=== PATIENT | male | born 1980 | race Caucasian/White ===

== ENCOUNTER 2019-10-19 06:21 | Observation (INO) | payer OTHER ==
[2019-10-19] MEDS: SODIUM CHLORIDE 0.9% 500 ML 500 ML IV SCH ×2 (07:05→09:13)
[2019-10-19 07:14] LABS: Basophils % (Auto) 0.9 % (0.0-1.8); Eosinophils # (Auto) 0.1 K/mm3 (0.0-0.4); Eosinophils % (Auto) 1.5 % (0.0-4.3); Hematocrit 41.7 % (35.5-45.6); Hemoglobin 14.4 gm/dl (11.8-15.2); Lymphocytes # (Auto) 1.4 K/mm3 (1.2-5.4); Lymphocytes % (Auto) 28.9 % (13.4-35.0); Mean Corpuscular HGB Conc 35 % (32-34); Mean Corpuscular Volume 87 fl (84-94); Monocytes # (Auto) 0.3 K/mm3 (0.0-0.8); Monocytes % (Auto) 6.1 % (0.0-7.3); Platelet Count 278 K/mm3 (140-440); Red Blood Count 4.78 M/mm3 (3.65-5.03); Red Cell Distribution Width 13.4 % (13.2-15.2)
[2019-10-19 07:27] LABS: BUN/Creatinine Ratio 16; Blood Urea Nitrogen 14 mg/dL (9-20); Calcium 9.4 mg/dL (8.4-10.2); Hemolysis Index 9
[2019-10-19 07:44] LABS: INR 1.01 (0.87-1.13)
[2019-10-19] MEDS ORDERED: HEPARIN/NS 5000 UNIT/500ML 1,000 ML IR ONE (08:12)
[2019-10-19] MEDS ORDERED: MIDAZOLAM 2 MG/2 ML INJ ONE (08:12)
[2019-10-19] MEDS ORDERED: LIDOCAINE (2%) 20 MG/1 ML VIAL 20 ML MDV INFILTRATI ONE (08:13)
[2019-10-19] MEDS ORDERED: fentaNYL 100 MCG/2 ML INJ ONE (08:13)
[2019-10-19] MEDS ORDERED: VERAPAMIL 5 MG/2 ML INJ ONE (08:13)
[2019-10-19] MEDS: NITROGLYCERIN SYRINGE 3 ML ONE ×2 (09:14→09:17)
[2019-10-19] MEDS: HEPARIN 10,000 UNITS/10 ML VIAL ONE ×3 (09:16→09:19)
[2019-10-19] MEDS ORDERED: SODIUM CHLORIDE 0.9% 500 ML 500 ML ONE (09:30)
--- NOTE | 2019-10-19 10:48 | Cardiac Catherization Report ---
CARDIAC CATHETERIZATION INDICATION FOR PROCEDURE: The patient is a pleasant 39-year-old gentleman who presented last week with non-ST elevation myocardial infarction, found to have occlusion of his right coronary, underwent primary PCI drug-eluting stent. Also found to have 90% high mid LAD stenosis; however, was discharged, had recurrent chest pain despite optimal medical therapy, referred for left heart catheterization and PCI of LAD. Risks, benefits, alternatives discussed at length prior to obtaining informed consent. PROCEDURE IN DETAIL: The patient was brought to the catheterization lab in a postabsorptive state, prepped and draped in sterile fashion. Aldair's test in right hand was normal. A 2 mL of 2% lidocaine used to anesthetize the right wrist. A standard 6-Peruvian hydrophilic sheath used to cannulate the right radial via modified Seldinger technique. All exchanges performed to exchange a J-tip guidewire. JL3.5 catheter was used to engage the left main. No dampening or ventricularization. Cineangiography performed in all projections. JR4 catheter was used to cross the aortic valve under fluoroscopic guidance. Left ventriculography performed in 30 DEVRIES and 30 SLOVENIAN projections via hand injections, catheter flushed. Manual pullback performed with continuous pressure monitoring. Catheter used to engage the right coronary. No dampening or ventricularization. Cineangiography performed in all projections. Next, an EBU 3.5 guide used to engage left main without difficulty. Heparin given. Abnormal ACT is confirmed. DATA: Aortic pressure is 110/60, LV pressure is 110, LVEDP of 12 mmHg. Left ventriculography revealed normal systolic performance with estimated ejection fraction of 55-60%. The patient remained in sinus rhythm and sinus bradycardia throughout the procedure. No AV block, no dysrhythmias. Normal left ventricular systolic performance, estimated ejection fraction of 55-60%. No evidence of aortic stenosis. CORONARY ANATOMY: Right dominant system. Right coronary is a moderate sized vessel, courses AV groove, distally bifurcates in posterior descending and posterolateral branches. A stent in the distal right coronary is widely patent. Widely patent, posterior descending artery. LAD is a moderate sized vessel, courses anterior intergroove, wraps around the apex. There is a 90% eccentric hazy high mid LAD stenosis, this is the culprit lesion. There is a 40-50% mid left circumflex stenosis, which is smooth. Medical management of this, we decided to proceed with PCI. Abnormal ACT confirmed. The lesion was wired with a [place] wire. We direct stented with an Ajit 3.0 x 18 drug-eluting stent. Excellent angiographic result. There is a jailed second diagonal, which is very small. FADI 3 flow. Medical management. Intravascular ultrasound was performed, which reveals a well-opposed, well-expanded stent, no dissection proximally or distally, a good result. No complications are noted. I directly supervised the administration of moderate sedation from 9:10 a.m. to 9:45 a.m. with fentanyl and Versed. CONCLUSIONS: 1. Severe coronary artery disease. A successful PCI of culprit 90% hazy high mid LAD stenosis with placement of drug-eluting stent (Leon 3.0 x 18) with excellent final angiographic and ultrasonographic results. 2. A 40-50% mid left circumflex, medical management. 3. Patent distal right coronary stent. 4. Preserved left ventricular systolic performance, estimated ejection fraction of 55-60%. 5. No evidence of aortic stenosis. The patient is clinically stable. Chest pain free. Standard radial care. Aspirin, statin and Plavix therapy. Blood pressure has been on the lower side, but he is not able to tolerate beta sharon or LESA inhibitor. Anticipate discharge in a.m. Results of procedure explained to the patient and family. All questions and concerns were addressed. JOB# [id number] CHERIE/ELENI
[2019-10-19] MEDS ORDERED: NON-FORMULARY EACH (Simvastatin [Simvastatin] 40 MG) PO SCH (22:00)
[2019-10-19] MEDS ORDERED: PRAVASTATIN 80 MG TAB PO SCH (22:00)
[2019-10-20 05:38] LABS: Basophils % (Auto) 0.7 % (0.0-1.8); Eosinophils # (Auto) 0.1 K/mm3 (0.0-0.4); Eosinophils % (Auto) 1.6 % (0.0-4.3); Hematocrit 40.5 % (35.5-45.6); Hemoglobin 13.6 gm/dl (11.8-15.2); Lymphocytes # (Auto) 1.9 K/mm3 (1.2-5.4); Lymphocytes % (Auto) 27.7 % (13.4-35.0); Mean Corpuscular HGB Conc 34 % (32-34); Mean Corpuscular Volume 89 fl (84-94); Monocytes # (Auto) 0.5 K/mm3 (0.0-0.8); Monocytes % (Auto) 7.8 % (0.0-7.3); Platelet Count 270 K/mm3 (140-440); Red Blood Count 4.56 M/mm3 (3.65-5.03); Red Cell Distribution Width 13.2 % (13.2-15.2)
[2019-10-20 05:50] LABS: Creatine Kinase MB 1.7 ng/mL (0.0-4.0)
[2019-10-20 05:53] LABS: BUN/Creatinine Ratio 13; Blood Urea Nitrogen 12 mg/dL (9-20); Hemolysis Index 8
--- NOTE | 2019-10-20 09:20 | XRay Report ---
CHEST 1 VIEW INDICATION: post pci. COMPARISON: 10/07/2019 FINDINGS: Support devices: None. Heart: Within normal limits. Lungs/Pleura: No acute air space or interstitial disease. No pneumothorax. Additional findings: None. IMPRESSION: No acute findings. Signer Name: Manuelito Irwin Jr, MD Signed: 10/20/2019 9:16 AM Workstation Name: [id number]
[2019-10-20] MEDS ORDERED: LISINOPRIL 5 MG TAB PO SCH (10:00)
[2019-10-20] MEDS ORDERED: ASPIRIN 81 MG TAB CHEW PO SCH (10:00)
[2019-10-20] MEDS ORDERED: CLOPIDOGREL 75 MG TAB PO SCH (10:00)
--- NOTE | 2019-10-20 10:34 | Short Stay Summary ---
Short Stay Documentation Date of service: 10/20/19 - History H&P: obtained from office - Allergies and Medications Current Medications: Allergies No Known Allergies Allergy (Verified 09/25/14 23:14) Home Medications Medication Instructions Recorded Confirmed Last Taken Type Aspirin [Aspirin BABY CHEW TAB] 81 mg PO QDAY #30 tab.chew 10/10/19 10/19/19 10/19/19 05:30 Rx Clopidogrel [Plavix] 75 mg PO QDAY #30 tablet 10/10/19 10/19/19 10/19/19 Rx 0705 lisinopriL [Zestril TAB] 5 mg PO QDAY #30 tablet 10/10/19 10/19/19 10/18/19 Rx Simvastatin 40 mg PO QHS 10/19/19 10/19/19 10/18/19 History Active Medications Aspirin (Baby Aspirin) 81 mg PO QDAY [facility] Last Admin: 10/20/19 09:25 Dose: Not Given Documented by: Clopidogrel Bisulfate (Plavix) 75 mg PO QDAY [facility] Last Admin: 10/20/19 09:25 Dose: Not Given Documented by: Lisinopril (Zestril) 5 mg PO QDAY [facility] Last Admin: 10/20/19 09:26 Dose: Not Given Documented by: Pravastatin Sodium (Pravachol) 80 mg PO QHS [facility] Last Admin: 10/19/19 21:01 Dose: 80 mg Documented by: - Physical exam General appearance: no acute distress Integumentary: no rash, no growths, no abnormal pigmentation, other (right radial [facility] site c/d/i, no bleeding or hematoma) HEENT: Atraumatic, PERRLA, EOMI Lungs: Clear to auscultation Heart: Regular rate, Normal S1, Normal S2 Gastrointestinal: normal, normoactive bowel sounds Extremities: no ischemia, pulses intact, pulses symmetrical Neurological: Normal gait, Normal speech, Strength at 5/5 X4 ext - Brief post op/procedure progress note Date of procedure: 10/19/19 Pre-op diagnosis: CAD Post-op diagnosis: same Procedure: LHC with PCI - see dictated cath report Anesthesia: local Estimated blood loss: none Condition: stable - Disposition Condition at discharge: Good Disposition: [id number] TO HOME OR SELFCARE - Discharge Diagnoses (1) CAD (coronary artery disease) Status: Chronic (2) Stented coronary artery Status: Chronic (3) Sinus bradycardia Status: Chronic Short Stay Discharge Plan Activity: advance as tolerated Diet: low fat, low cholesterol, low salt Wound: open to air, keep clean and dry, per your surgeon's advice Follow up with: NATACHA SALAMANCA MD [Primary Care Provider] - 7 Days MARILEE VIRK MD [Staff Physician] - 7 Days ([place] office, 11/07/2019 @ 3:00PM)
[2019-10-20 13:11] VITALS: BP 113/65
== END 2019-10-20 15:20 | disposition home or self-care (01) ==
LOC: CATHLABREC 06:21 → 4A 10:36
PROVIDERS: ADMIT Internal Medicine; ATTEND Internal Medicine
DX: I25.10 Atherosclerotic heart disease of native coronary artery without angina pectoris (principal); R00.1 Bradycardia, unspecified; Z95.5 Presence of coronary angioplasty implant and graft; Z79.82 Long term (current) use of aspirin; Z79.02 Long term (current) use of antithrombotics/antiplatelets; Z79.899 Other long term (current) drug therapy
CPT/HCPCS: 36415; 71045; 80048; 82550; 82553; 84484; 85025; 85347; 85610; 85730; 92978; 93005; 93010; 93458; A9270; C1753; C1769; C1874; C1887; C1894; C9600; G0378; J1644; J2250; J3010; J7040; 92928; Q9967

== ENCOUNTER 2019-10-22 17:45 | Emergency (ER) | payer OTHER ==
--- NOTE | 2019-10-22 20:54 | Emergency Department Report ---
Chief Complaint: Pain General Stated Complaint: BRUISES ON L SIDE - HPI History of Present Illness: 39 y/o M p/w a cc of SOB and anxiety. The pt states he had a cardiac stent placed 10/19/[address] Diaz. The pt states yd he developed SOB and anxiety. Pt denies CP. Pt states he's noticed bruising to his left chest and LUE. Pt is on plavix and asa - Exam Vital Signs: Vital Signs 10/22/19 20:48 Temperature 98.2 F Pulse Rate 60 Respiratory 18 Rate Blood Pressure 120/63 O2 Sat by Pulse 99 Oximetry MSE screening note: Focused history and physical exam performed. Due to findings the following was ordered: cbc, bmp, ck/ckmb, tro, pt/ptt/inr cxr, EKG ED Disposition for MSE Condition: Stable
[2019-10-22 21:07] LABS: Basophils # (Auto) 0.1 K/mm3 (0.0-0.1); Eosinophils # (Auto) 0.1 K/mm3 (0.0-0.4); Hematocrit 40.7 % (35.5-45.6); Hemoglobin 14.1 gm/dl (11.8-15.2); Lymphocytes # (Auto) 2.4 K/mm3 (1.2-5.4); Lymphocytes % (Auto) 35.8 % (13.4-35.0); Mean Corpuscular HGB Conc 35 % (32-34); Mean Corpuscular Volume 88 fl (84-94); Monocytes # (Auto) 0.6 K/mm3 (0.0-0.8); Monocytes % (Auto) 8.2 % (0.0-7.3); Platelet Count 291 K/mm3 (140-440); Red Blood Count 4.61 M/mm3 (3.65-5.03); Red Cell Distribution Width 13.3 % (13.2-15.2)
--- NOTE | 2019-10-22 21:20 | XRay Report ---
CHEST 2 VIEWS INDICATION: sob. COMPARISON: 10/20/2019 FINDINGS: Support devices: None. Heart: Within normal limits. Lungs/Pleura: No acute air space or interstitial disease. No significant pleural effusion. IMPRESSION: No acute findings. Signer Name: Marlon Beckwith MD Signed: 10/22/2019 9:15 PM Workstation Name: [id number]
[2019-10-22 21:21] LABS: Creatine Kinase MB 1.6 ng/mL (0.0-4.0)
[2019-10-22 21:22] LABS: INR 1.06 (0.87-1.13)
[2019-10-22 21:23] LABS: BUN/Creatinine Ratio 12; Blood Urea Nitrogen 12 mg/dL (9-20); Calcium 9.3 mg/dL (8.4-10.2); Hemolysis Index 24
[2019-10-22 21:27] LABS: Partial Thromboplastin Time 34.3 Sec. (24.2-36.6)
[2019-10-22] MEDS ORDERED: LORazepam 1 MG TAB PO ONE (22:27)
--- NOTE | 2019-10-22 22:44 | Emergency Department Report ---
ED Chest Pain HPI - General Chief Complaint: Pain General Stated Complaint: BRUISES ON L SIDE Time Seen by Provider: 10/22/19 22:13 Source: patient Mode of arrival: Ambulatory Limitations: No Limitations - History of Present Illness Initial Comments: Patient is a 39-year-old male with past medical history of coronary artery disease and hypertension who had 2 stents placed in the RCA on 10/08/2019 and a LAD stent placed on 10/19/2019. Patient states he left the hospital feeling fine. Patient states that yesterday he began having some palpitations and a panicky feeling. States is some associated shortness of breath. Patient's had these continued symptoms throughout the day. Patient denies nausea vomiting fevers chills cough cold or congestion. Patient states the symptoms are not exertional. Of note patient also noticed a small bruise on his left axilla and left posterior forearm. Patient does not remember any trauma. Patient is newly on Plavix Severity scale (0 -10): 0 - Related Data Home Medications Medication Instructions Recorded Confirmed Last Taken Simvastatin 40 mg PO QHS 10/19/19 10/19/19 10/18/19 Previous Rx's Medication Instructions Recorded Last Taken Type Aspirin [Aspirin BABY CHEW TAB] 81 mg PO QDAY #30 tab.chew 10/10/19 10/19/19 05:30 Rx Clopidogrel [Plavix] 75 mg PO QDAY #30 tablet 10/10/19 10/19/19 Rx 0705 lisinopriL [Zestril TAB] 5 mg PO QDAY #30 tablet 10/10/19 10/18/19 Rx ALPRAZolam [Xanax TAB] 0.25 mg PO BID PRN #6 tab 10/22/19 Unknown Rx Allergies Allergy/AdvReac Type Severity Reaction Status Date / Time No Known Allergies Allergy Verified 09/25/14 23:14 Heart Score - HEART Score History: Slightly suspicious EKG: Normal Age: < 45 Risk factors: > 3 risk factors or hx of atherosclerotic disease Troponin: < normal limit HEART Score: 2 ED Review of Systems ROS: Stated complaint: BRUISES ON L SIDE Other details as noted in HPI Comment: All other systems reviewed and negative ED Past Medical Hx - Past Medical History Previous Medical History?: Yes Hx Hypertension: Yes Hx Heart Attack/AMI: Yes Hx Headaches / Migraines: Yes Hx Asthma: Yes Hx HIV: No Additional medical history: HYPERLIPIDEMIA - Surgical History Past Surgical History?: Yes Hx Coronary Stent: Yes (2 stents: 10/08/19 (RCA) and 10/19/19 (LAD)) Additional Surgical History: HERNIA SX A CHILD - Social History Smoking Status: Never Smoker Substance Use Type: None - Medications Home Medications: Home Medications Medication Instructions Recorded Confirmed Last Taken Type Aspirin [Aspirin BABY CHEW TAB] 81 mg PO QDAY #30 tab.chew 10/10/19 10/19/19 10/19/19 05:30 Rx Clopidogrel [Plavix] 75 mg PO QDAY #30 tablet 10/10/19 10/19/19 10/19/19 Rx 0705 lisinopriL [Zestril TAB] 5 mg PO QDAY #30 tablet 10/10/19 10/19/19 10/18/19 Rx Simvastatin 40 mg PO QHS 10/19/19 10/19/19 10/18/19 History ALPRAZolam [Xanax TAB] 0.25 mg PO BID PRN #6 tab 10/22/19 Unknown Rx ED Physical Exam - General Limitations: No Limitations General appearance: alert, in no apparent distress - Head Head exam: Present: atraumatic, normocephalic - Eye Eye exam: Present: normal appearance, PERRL, EOMI - ENT ENT exam: Present: mucous membranes moist - Neck Neck exam: Present: normal inspection - Respiratory Respiratory exam: Present: normal lung sounds bilaterally. Absent: respiratory distress, wheezes, rales, rhonchi - Cardiovascular Cardiovascular Exam: Present: regular rate, normal rhythm, normal heart sounds. Absent: systolic murmur, diastolic murmur, rubs, gallop - GI/Abdominal GI/Abdominal exam: Present: soft, normal bowel sounds. Absent: distended, tenderness, guarding, rebound - Rectal Rectal exam: Present: deferred - Extremities Exam Extremities exam: Present: normal inspection - Back Exam Back exam: Present: normal inspection - Neurological Exam Neurological exam: Present: alert, oriented X3 - Psychiatric Psychiatric exam: Present: normal affect, normal mood - Skin Skin exam: Present: warm, dry, intact, normal color. Absent: rash ED Course Vital Signs 10/22/19 10/22/19 10/22/19 20:48 21:58 22:00 Temperature 98.2 F 97.8 F Pulse Rate 60 55 L 56 L Respiratory 18 21 14 Rate Blood Pressure 120/63 Blood Pressure 128/71 [Left] O2 Sat by Pulse 99 99 Oximetry 10/22/19 10/22/19 10/22/19 22:01 22:15 22:31 Temperature Pulse Rate 52 L 58 L 66 Respiratory 12 13 17 Rate Blood Pressure 128/71 128/71 127/74 Blood Pressure [Left] O2 Sat by Pulse 99 99 99 Oximetry 10/22/19 10/22/19 10/22/19 22:45 23:01 23:15 Temperature Pulse Rate 53 L 52 L 56 L Respiratory 17 13 17 Rate Blood Pressure 127/74 120/66 127/74 Blood Pressure [Left] O2 Sat by Pulse 98 98 98 Oximetry FADI score - Fadi Score Age > 65: (0) No Aspirin use within the Past 7 Days: (0) No 3 or more CAD Risk Factors: (0) No 2 or more Angina events in past 24 hrs: (1) Yes Known CAD with more than 50% Stenosis: (0) No Elevated Cardiac Markers: (1) Yes ST Deviation Greater than 0.5mm: (0) No FADI Score: 2 ED Medical Decision Making - Lab Data Result diagrams: 10/22/19 20:56 10/22/19 20:56 Lab Results 10/22/19 10/22/19 10/22/19 Range/Units 20:56 20:56 20:56 WBC 6.7 (4.5-11.0) K/mm3 RBC 4.61 (3.65-5.03) M/mm3 Hgb 14.1 (11.8-15.2) gm/dl Hct 40.7 (35.5-45.6) % MCV 88 (84-94) fl MCH 31 (28-32) pg MCHC 35 H (32-34) % RDW 13.3 (13.2-15.2) % Plt Count 291 (140-440) K/mm3 Lymph % (Auto) 35.8 H (13.4-35.0) % [place] % (Auto) 8.2 H (0.0-7.3) % Eos % (Auto) 2.0 (0.0-4.3) % Baso % (Auto) 1.0 (0.0-1.8) % Lymph # 2.4 (1.2-5.4) K/mm3 [place] # 0.6 (0.0-0.8) K/mm3 Eos # 0.1 (0.0-0.4) K/mm3 Baso # 0.1 (0.0-0.1) K/mm3 Seg Neutrophils % 53.0 (40.0-70.0) % Seg Neutrophils # 3.6 (1.8-7.7) K/mm3 PT 13.9 (12.2-14.9) Sec. INR 1.06 (0.87-1.13) APTT 34.3 (24.2-36.6) Sec. Sodium 137 (137-145) mmol/L Potassium 3.9 (3.6-5.0) mmol/L Chloride 98.7 (98-107) mmol/L Carbon Dioxide 26 (22-30) mmol/L Anion Gap 16 mmol/L BUN 12 (9-20) mg/dL Creatinine 1.0 (0.8-1.5) mg/dL Estimated GFR > 60 ml/min BUN/Creatinine Ratio 12 % Glucose 91 (75-100) mg/dL Calcium 9.3 (8.4-10.2) mg/dL Total Creatine Kinase 91 (55-170) units/L CK-MB (CK-2) 1.6 (0.0-4.0) ng/mL CK-MB (CK-2) Rel Index 1.7 (0-4) Troponin T (0.00-0.029) ng/mL 10/22/19 Range/Units 20:56 WBC (4.5-11.0) K/mm3 RBC (3.65-5.03) M/mm3 Hgb (11.8-15.2) gm/dl Hct (35.5-45.6) % MCV (84-94) fl MCH (28-32) pg MCHC (32-34) % RDW (13.2-15.2) % Plt Count (140-440) K/mm3 Lymph % (Auto) (13.4-35.0) % [place] % (Auto) (0.0-7.3) % Eos % (Auto) (0.0-4.3) % Baso % (Auto) (0.0-1.8) % Lymph # (1.2-5.4) K/mm3 [place] # (0.0-0.8) K/mm3 Eos # (0.0-0.4) K/mm3 Baso # (0.0-0.1) K/mm3 Seg Neutrophils % (40.0-70.0) % Seg Neutrophils # (1.8-7.7) K/mm3 PT (12.2-14.9) Sec. INR (0.87-1.13) APTT (24.2-36.6) Sec. Sodium (137-145) mmol/L Potassium (3.6-5.0) mmol/L Chloride (98-107) mmol/L Carbon Dioxide (22-30) mmol/L Anion Gap mmol/L BUN (9-20) mg/dL Creatinine (0.8-1.5) mg/dL Estimated GFR ml/min BUN/Creatinine Ratio % Glucose (75-100) mg/dL Calcium (8.4-10.2) mg/dL Total Creatine Kinase (55-170) units/L CK-MB (CK-2) (0.0-4.0) ng/mL CK-MB (CK-2) Rel Index (0-4) Troponin T < 0.010 (0.00-0.029) ng/mL second troponin unchanged - EKG Data -: EKG Interpreted by Ri EKG shows normal: sinus rhythm, axis, intervals, QRS complexes, ST-T waves Rate: normal - EKG Data 10/22/19 22:44 occasional PVC, otherwise no acute process - Radiology Data CHEST 2 VIEWS INDICATION: sob. COMPARISON: 10/20/2019 FINDINGS: Support devices: None. Heart: Within normal limits. Lungs/Pleura: No acute air space or interstitial disease. No significant pleural effusion. IMPRESSION: No acute findings. Signer Name: Marlon Beckwith MD Signed: 10/22/2019 9:15 PM Workstation Name: [id number] - Medical Decision Making Patient is a 39-year-old male who has undergone 3 stent placements over the last month. Complaining of some mild shortness of breath and anxious feeling with palpitations. Patient has 2 negative troponins and no changes on EKG. Patient's heart scores 2. Patient is safe for discharge and ruled out for acute coronary syndrome. Patient and nurse to follow with his civil rights attorney. Critical care attestation.: If time is entered above; I have spent that time in minutes in the direct care of this critically ill patient, excluding procedure time. ED Disposition Clinical Impression: Atypical chest pain, Palpitation, Anxiousness, SOB (shortness of breath) Disposition: - TO HOME OR SELFCARE Is pt being admited?: No Does the pt Need Aspirin: No Condition: Stable Instructions: Chest Pain (ED) Prescriptions: ALPRAZolam [Xanax TAB] 0.25 mg PO BID PRN #6 tab PRN Reason: Anxiety Referrals: SALLIE BURTON MD [Staff Physician] - 3-5 Days Time of Disposition: 23:30
[2019-10-22 23:25] VITALS: BP 127/74
== END 2019-10-22 23:56 | disposition home or self-care (01) ==
LOC: ED 17:45
DX: S40.022A Contusion of left upper arm, initial encounter (principal); S50.12XA Contusion of left forearm, initial encounter; R07.89 Other chest pain; R00.2 Palpitations; R06.02 Shortness of breath; F41.9 Anxiety disorder, unspecified; I10 Essential (primary) hypertension; I25.10 Atherosclerotic heart disease of native coronary artery without angina pectoris; J45.909 Unspecified asthma, uncomplicated; E78.5 Hyperlipidemia, unspecified; Z98.890 Other specified postprocedural states; Z79.899 Other long term (current) drug therapy; Z95.5 Presence of coronary angioplasty implant and graft; X58.XXXA Exposure to other specified factors, initial encounter; Y93.89 Activity, other specified; Y92.89 Other specified places as the place of occurrence of the external cause; Y99.8 Other external cause status
CPT/HCPCS: 36415; 71046; 80048; 82550; 82553; 84484; 85025; 85610; 85730; 93005; 93010

== ENCOUNTER 2020-12-22 16:07 | Observation (INO) | payer OTHER ==
[2020-12-22] MEDS ORDERED: ASPIRIN 325 MG TAB PO ONE ×3 (16:19→20:21)
--- NOTE | 2020-12-22 16:20 | Event Note ---
ED Screening Note Date of service: 12/22/20 Time: 16:20 ED Screening Note: Pleasant 40-year-old male with a past medical history of coronary artery disease status post stenting x2 presents to the ER with chief complaint of left-sided chest pain without radiation over the past 2 days. He denies any shortness of breath or exertional symptoms. Denies any other associated symptoms such as fever, chills, night sweats, headache, dizziness, blurry vision, nausea, vomit, diarrhea, shortness of breath, weakness or any other associated symptoms. This initial assessment/diagnostic orders/clinical plan/treatment(s) is/are subject to change based on patients health status, clinical progression and re- assessment by fellow clinical providers in the ED. Further treatment and workup at subsequent clinical providers discretion. Patient/guardian urged not to elope from the ED as their condition may be serious if not clinically assessed and managed. Initial orders include: Chest pain protocol, stat EKG, troponins
--- NOTE | 2020-12-22 16:54 | XRay Report ---
CHEST 2 VIEWS 1642 INDICATION / CLINICAL INFORMATION: Chest Pain COMPARISON: 10/22/2019 FINDINGS: SUPPORT DEVICES: None. HEART / MEDIASTINUM: No significant abnormality. LUNGS / PLEURA: No significant pulmonary or pleural abnormality. No pneumothorax. ADDITIONAL FINDINGS: No significant additional findings. IMPRESSION: No significant acute abnormality Signer Name: Miguel Hunt MD Signed: 12/22/2020 4:50 PM Workstation Name: [id number]
[2020-12-22 17:11] LABS: Basophils % (Auto) 0.5 % (0.0-1.8); Eosinophils % (Auto) 0.5 % (0.0-4.3); Hematocrit 42.6 % (35.5-45.6); Hemoglobin 14.4 gm/dl (11.8-15.2); Lymphocytes % (Auto) 14.7 % (13.4-35.0); Mean Corpuscular HGB Conc 34 % (32-34); Mean Corpuscular Volume 92 fl (84-94); Monocytes # (Auto) 0.4 K/mm3 (0.0-0.8); Monocytes % (Auto) 5.8 % (0.0-7.3); Platelet Count 334 K/mm3 (140-440); Red Blood Count 4.64 M/mm3 (3.65-5.03); Red Cell Distribution Width 14.6 % (13.2-15.2)
[2020-12-22 17:25] LABS: Alanine Aminotransferase 14 units/L (7-56); Albumin 4.3 g/dL (3.9-5); BUN/Creatinine Ratio 11; Blood Urea Nitrogen 10 mg/dL (9-20); Calcium 9.3 mg/dL (8.4-10.2); Hemolysis Index 10
[2020-12-22 17:32] LABS: INR 1.06 (0.87-1.13)
--- NOTE | 2020-12-22 20:01 | Emergency Department Report ---
ED Chest Pain HPI - General Chief Complaint: Chest Pain Stated Complaint: CP Time Seen by Provider: 12/22/20 19:36 Source: patient Mode of arrival: Ambulatory Limitations: No Limitations - History of Present Illness Initial Comments: Patient is 40 years old male with history of coronary artery disease status post stent last year by Dr. Husain. Patient presented to the ER complaining of left sided chest pain that started this morning while he was working. Patient describes his chest pain as similar to what he had last time when he had his VT. Patient denied any shortness of breath, fever or cough. Patient stated that he is compliant with his medication. MD Complaint: chest pain -: This morning Onset: during rest Pain Location: left chest Pain Radiation: none Severity: moderate Severity scale (0 -10): 6 Quality: tightness - Related Data Home Medications Medication Instructions Recorded Confirmed Last Taken Simvastatin 40 mg PO QHS 10/19/19 12/23/20 10/18/19 Losartan [Cozaar] 25 mg PO QDAY 12/23/20 12/23/20 12/22/20 Previous Rx's Medication Instructions Recorded Last Taken Type Aspirin [Aspirin BABY CHEW TAB] 81 mg PO QDAY #30 tab.chew 10/10/19 12/22/20 Rx Clopidogrel [Plavix] 75 mg PO QDAY #30 tablet 10/10/19 12/22/20 Rx ALPRAZolam [Xanax TAB] 0.25 mg PO BID PRN #6 tab 10/22/19 Unknown Rx ISOSORBIDE MONOnitrate [Imdur ER] 30 mg PO DAILY #30 tab.er.24h 12/24/20 Unknown Rx Allergies Allergy/AdvReac Type Severity Reaction Status Date / Time No Known Allergies Allergy Verified 09/25/14 23:14 Heart Score - HEART Score History: Moderately suspicious EKG: Non-specific Age: < 45 Risk factors: > 3 risk factors or hx of atherosclerotic disease Troponin: < normal limit HEART Score: 4 ED Review of Systems ROS: Stated complaint: CP Other details as noted in HPI Comment: All other systems reviewed and negative Constitutional: denies: chills, fever Respiratory: denies: cough, orthopnea, shortness of breath, SOB with exertion, SOB at rest, wheezing Cardiovascular: chest pain. denies: palpitations, dyspnea on exertion Gastrointestinal: denies: abdominal pain, nausea, vomiting Musculoskeletal: denies: back pain Neurological: denies: headache, weakness ED Past Medical Hx - Past Medical History Previous Medical History?: Yes Hx Hypertension: Yes Hx Heart Attack/AMI: Yes Hx Headaches / Migraines: Yes Hx Asthma: Yes Hx HIV: No Additional medical history: HYPERLIPIDEMIA - Surgical History Past Surgical History?: Yes Hx Coronary Stent: Yes (2 stents: 10/08/19 (RCA) and 10/19/19 (LAD)) Additional Surgical History: HERNIA SX A CHILD - Social History Smoking Status: Never Smoker Substance Use Type: Alcohol - Medications Home Medications: Home Medications Medication Instructions Recorded Confirmed Last Taken Type Aspirin [Aspirin BABY CHEW TAB] 81 mg PO QDAY #30 tab.chew 10/10/19 12/23/20 12/22/20 Rx Clopidogrel [Plavix] 75 mg PO QDAY #30 tablet 10/10/19 12/23/20 12/22/20 Rx Simvastatin 40 mg PO QHS 10/19/19 12/23/20 10/18/19 History ALPRAZolam [Xanax TAB] 0.25 mg PO BID PRN #6 tab 10/22/19 12/23/20 Unknown Rx Losartan [Cozaar] 25 mg PO QDAY 12/23/20 12/23/20 12/22/20 History ISOSORBIDE MONOnitrate [Imdur ER] 30 mg PO DAILY #30 tab.er.24h 12/24/20 Unknown Rx ED Physical Exam - General Limitations: No Limitations General appearance: alert, in no apparent distress - Head Head exam: Present: atraumatic, normocephalic, normal inspection - Eye Eye exam: Present: normal appearance, PERRL - ENT ENT exam: Present: normal exam, normal orophraynx, mucous membranes moist - Neck Neck exam: Present: normal inspection, full ROM. Absent: tenderness, meningismus - Respiratory Respiratory exam: Present: normal lung sounds bilaterally - Cardiovascular Cardiovascular Exam: Present: regular rate, normal rhythm, normal heart sounds - GI/Abdominal GI/Abdominal exam: Present: soft, normal bowel sounds. Absent: distended, tenderness, guarding, rebound, rigid, organomegaly, mass, bruit, pulsatile mass, hernia - Extremities Exam Extremities exam: Present: normal inspection, full ROM, normal capillary refill. Absent: tenderness - Back Exam Back exam: Present: normal inspection, full ROM. Absent: CVA tenderness (R), CVA tenderness (L) - Neurological Exam Neurological exam: Present: alert, oriented X3, CN II-XII intact - Psychiatric Psychiatric exam: Present: normal mood - Skin Skin exam: Present: warm, dry, intact, normal color ED Course Vital Signs 12/22/20 12/22/20 12/22/20 16:26 20:00 20:16 Temperature 99 F 97.6 F Pulse Rate 65 61 58 L Respiratory 20 14 16 Rate Blood Pressure 113/83 123/72 125/81 Blood Pressure 123/72 [Left] O2 Sat by Pulse 98 99 98 Oximetry 12/22/20 12/22/20 12/22/20 20:30 20:46 21:00 Temperature Pulse Rate 62 67 60 Respiratory 16 10 L 16 Rate Blood Pressure 125/81 131/80 131/80 Blood Pressure [Left] O2 Sat by Pulse 100 99 99 Oximetry 12/22/20 12/22/20 12/22/20 21:16 21:30 21:46 Temperature Pulse Rate 70 62 58 L Respiratory 20 19 15 Rate Blood Pressure 112/66 108/70 110/54 Blood Pressure [Left] O2 Sat by Pulse 96 99 98 Oximetry 12/22/20 12/22/20 12/22/20 22:00 22:16 22:30 Temperature Pulse Rate 65 58 L 56 L Respiratory 19 18 15 Rate Blood Pressure 110/54 119/74 114/46 Blood Pressure [Left] O2 Sat by Pulse 99 100 100 Oximetry 12/22/20 12/22/20 12/22/20 22:46 23:00 23:24 Temperature Pulse Rate 56 L 72 Respiratory 18 19 17 Rate Blood Pressure 121/78 119/74 119/74 Blood Pressure [Left] O2 Sat by Pulse 99 99 100 Oximetry 12/22/20 12/22/20 12/22/20 23:26 23:30 23:40 Temperature Pulse Rate 67 62 Respiratory 18 15 17 Rate Blood Pressure 137/75 137/75 Blood Pressure [Left] O2 Sat by Pulse 99 99 Oximetry 12/22/20 23:46 Temperature Pulse Rate 63 Respiratory 13 Rate Blood Pressure 137/75 Blood Pressure [Left] O2 Sat by Pulse 98 Oximetry FADI score - Fadi Score Age > 65: (0) No Aspirin use within the Past 7 Days: (0) No 3 or more CAD Risk Factors: (0) No 2 or more Angina events in past 24 hrs: (1) Yes Known CAD with more than 50% Stenosis: (0) No Elevated Cardiac Markers: (1) Yes ST Deviation Greater than 0.5mm: (0) No FADI Score: 2 ED Medical Decision Making - Lab Data Result diagrams: 12/23/20 05:39 12/23/20 05:39 - EKG Data -: EKG Interpreted by Me EKG shows normal: sinus rhythm Rate: normal - EKG Data Interpretation: no acute changes - Radiology Data Radiology results: report reviewed - Medical Decision Making Patient is 40 years old male with history of coronary artery disease status post stent last year by Dr. Husain. Patient presented to the ER complaining of left sided chest pain that started this morning while he was working. Patient describes his chest pain as similar to what he had last time when he had his VT. Patient denied any shortness of breath, fever or cough. Patient stated that he is compliant with his medication. EKG showed no ST elevation however there is hyperacute T waves. Chest x-ray is unremarkable. Troponin is negative x2. I discussed the patient with Dr. 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 I discussed the patient with Dr. Guillermo, he agreed to admit the patient to medical service for further management. Critical care attestation.: If time is entered above; I have spent that time in minutes in the direct care of this critically ill patient, excluding procedure time. ED Disposition Clinical Impression: Chest pain, History of non-ST elevation myocardial infarction (NSTEMI) Disposition: OP ADMIT IP TO THIS HOSP Is pt being admited?: Yes Condition: Stable
[2020-12-22] MEDS ORDERED: ASPIRIN 81 MG TAB CHEW PO ONE (20:13)
[2020-12-22] MEDS ORDERED: ACETAMINOPHEN 325 MG TAB PO PRN (22:09)
[2020-12-22] MEDS ORDERED: NITROGLYCERIN 0.4 MG TAB SUBL SL PRN (22:09)
[2020-12-22] MEDS ORDERED: MORPHINE 4 MG/1 ML INJ IV PRN (22:09)
[2020-12-22] MEDS ORDERED: ALPRAZolam 0.25 MG TAB PO PRN (22:14)
--- NOTE | 2020-12-22 23:20 | History and Physical Report ---
History of Present Illness Date of examination: 12/22/20 Date of admission: 12/22/20 22:30 Chief complaint: chest pain History of present illness: 40-year-old male with history of CAD, HTN, NSTEMI, and HLD who presents [facility] ED with complaints of chest pain x2 days. Patient states she has been experiencing non-radiating 5/10 left sided chest pain which started approximately 2 days ago while on a job site. 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 He states that his chest p ain is similar to the pain he experienced when he had a NM a few years ago. Admits to be compliant with meds. Denies fever, headache, shortness of breath, cough, hemoptysis, palpitations, abdominal pain, hematuria, alterations in gait, diplopia, or recent sick contacts Past History Past Medical History: acute NM (NSTEMI), CAD, hypertension, hyperlipidemia, other (asthma, MATIAS) Past Surgical History: Other (stent x2 ( RCA 10/08/18, LAD 10/19/19)) Social history: , lives with family, full code. denies: smoking, alcohol abuse, IV drug use Family history: no significant family history Medications and Allergies Allergies Allergy/AdvReac Type Severity Reaction Status Date / Time No Known Allergies Allergy Verified 09/25/14 23:14 Home Medications Medication Instructions Recorded Confirmed Last Taken Type Aspirin [Aspirin BABY CHEW TAB] 81 mg PO QDAY #30 tab.chew 10/10/19 10/19/1901/31 05:30 Rx Clopidogrel [Plavix] 75 mg PO QDAY #30 tablet 10/10/19 10/19/19 10/19/19 Rx 0705 lisinopriL [Zestril TAB] 5 mg PO QDAY #30 tablet 10/10/19 10/19/19 10/18/19 Rx Simvastatin 40 mg PO QHS 10/19/19 10/19/19 10/18/19 History ALPRAZolam [Xanax TAB] 0.25 mg PO BID PRN #6 tab 10/22/19 Unknown Rx Active Meds: Active Medications Acetaminophen (Acetaminophen 325 Mg Tab) 650 mg PO Q6H PRN PRN Reason: Pain, Mild (1-3) Alprazolam (Alprazolam 0.25 Mg Tab) 0.25 mg PO BID PRN PRN Reason: Anxiety Aspirin (Aspirin 81 Mg Tab Chew) 81 mg PO QDAY HELEN Clopidogrel Bisulfate (Clopidogrel 75 Mg Tab) 75 mg PO QDAY HELEN Heparin Sodium (Porcine) (Heparin 5,000 Unit/1 Ml Vial) 5,000 unit SUB-Q Q12HR HELEN Lisinopril (Lisinopril 5 Mg Tab) 5 mg PO QDAY HELEN Morphine Sulfate (Morphine 4 Mg/1 Ml Inj) 2 mg IV Q5MIN PRN PRN Reason: Chest Pain Nitroglycerin (Nitroglycerin 0.4 Mg Tab Subl) 0.4 mg SL Q5M PRN PRN Reason: Chest Pain Pravastatin Sodium (Pravastatin 80 Mg Tab) 80 mg PO QHS HELEN Sodium Chloride (Sodium Chloride 0.9% 10 Ml Flush Syringe) 10 ml IV PRN PRN PRN Reason: LINE FLUSH Tramadol HCl (Tramadol 50 Mg Tab) 50 mg PO Q6H PRN PRN Reason: Pain, Moderate (4-6) Review of Systems All systems: negative (As noted in HPI) Exam - Physical Exam Narrative exam: Physical exam General appearance: Present: No acute distress, alert and oriented 3, adult male - EENT Eyes: Present: PERRL, EOM intact ENT: hearing intact, normal dentition - Neck Neck: Present: supple, normal ROM - Respiratory Respiratory effort: Non-labored Respiratory: Clear throughout - Cardiovascular Heart rate: 56 (bpm) Rhythm: Sinus bradycardia, with hyperacute T wave abnormality Heart Sounds: Present: S1 & S2. Absent: rub, click - Extremities Extremities: no ischemia, pulses intact, excoriation to right lower extremity - Peripheral Assessment Peripheral Pulses: within normal limits - Abdominal General gastrointestinal: soft, non-tender, normal bowel sounds - Integumentary Integumentary: Present: warm, dry - Musculoskeletal Musculoskeletal: Able to move all extremities -Neurological Neurological: CN II-XII intact - Psychiatric Psychiatric: Appropriate for situation ,cooperative - Constitutional Vitals: Temp Pulse Resp BP Pulse Ox 97.6 F 56 L 18 121/78 99 12/22/20 20:00 12/22/20 22:46 12/22/20 22:46 12/22/20 22:46 12/22/20 22:46 HEART Score - HEART Score EKG: Non-specific Age: < 45 Risk factors: > 3 risk factors or hx of atherosclerotic disease Troponin: Troponin T < 0.010 ng/mL (0.00-0.029) 12/22/20 18:54 Troponin: < normal limit Results - Labs CBC & Chem 7: 12/22/20 16:29 12/22/20 16: Labs: Laboratory Last Values WBC 7.1 K/mm3 (4.5-11.0) 12/22/20 16: RBC 4.64 M/mm3 (3.65-5.03) 12/22/20 16: Hgb 14.4 gm/dl (11.8-15.2) 12/22/20 16: Hct 42.6 % (35.5-45.6) 12/22/20 16: MCV 92 fl (84-94) 12/22/20 16: MCH 31 pg (28-32) 12/22/20 16: MCHC 34 % (32-34) 12/22/20 16: RDW 14.6 % (13.2-15.2) 12/22/20 16: Plt Count 334 K/mm3 (140-440) 12/22/20 16: Lymph % (Auto) 14.7 % (13.4-35.0) 12/22/20 16: [place] % (Auto) 5.8 % (0.0-7.3) 12/22/20 16: Eos % (Auto) 0.5 % (0.0-4.3) 12/22/20 16: Baso % (Auto) 0.5 % (0.0-1.8) 12/22/20 16: Lymph # (Auto) 1.0 K/mm3 (1.2-5.4) L 12/22/20 16: [place] # (Auto) 0.4 K/mm3 (0.0-0.8) 12/22/20 16: Eos # (Auto) 0.0 K/mm3 (0.0-0.4) 12/22/20 16: Baso # (Auto) 0.0 K/mm3 (0.0-0.1) 12/22/20 16: Seg Neutrophils % 78.5 % (40.0-70.0) H 12/22/20 16: Seg Neutrophils # 5.5 K/mm3 (1.8-7.7) 12/22/20 16:29 PT 13.7 Sec. (12.2-14.9) 12/22/20 16:29 INR 1.06 (0.87-1.13) 12/22/20 16:29 APTT 31.0 Sec. (24.2-36.6) 12/22/20 16:29 Sodium 139 mmol/L (137-145) 12/22/20 16:29 Potassium 3.9 mmol/L (3.6-5.0) 12/22/20 16:29 Chloride 102.0 mmol/L (98-107) 12/22/20 16:29 Carbon Dioxide 25 mmol/L (22-30) 12/22/20 16:29 Anion Gap 16 mmol/L 12/22/20 16:29 BUN 10 mg/dL (9-20) 12/22/20 16:29 Creatinine 0.9 mg/dL (0.8-1.3) 12/22/20 16:29 Estimated GFR > 60 ml/min 12/22/20 16:29 BUN/Creatinine Ratio 11 % 12/22/20 16:29 Glucose 95 mg/dL (75-100) 12/22/20 16:29 Calcium 9.3 mg/dL (8.4-10.2) 12/22/20 16:29 Total Bilirubin 0.40 mg/dL (0.1-1.2) 12/22/20 16:29 AST 22 units/L (5-40) 12/22/20 16:29 ALT 14 units/L (7-56) 12/22/20 16:29 Alkaline Phosphatase 78 units/L (35-129) 12/22/20 16:29 Troponin T < 0.010 ng/mL (0.00-0.029) 12/22/20 18:54 Total Protein 7.2 g/dL (6.3-8.2) 12/22/20 16:29 Albumin 4.3 g/dL (3.9-5) 12/22/20 16:29 Albumin/Globulin Ratio 1.5 % 12/22/20 16:29 - Imaging and Cardiology Chest x-ray: report reviewed (Impression: No significant acute abnormality), image reviewed Assessment and Plan Assessment and plan: Atypical acute Chest Pain -C/o left-sided nonradiating chest pain -Initiate chest pain protocol -Continuous telemetry monitoring -Continue supportive care -History of NSTEMI -Pain mgmt -Currently on ASA, Plavix, statin -Troponin negative x 2 , will continue to trend -EKG unrevealing for acute ischemic abnormalities -Cardiology consulted with plans to see patient in a.m. 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
[2020-12-23 06:14] LABS: Basophils % (Auto) 0.7 % (0.0-1.8); Eosinophils # (Auto) 0.1 K/mm3 (0.0-0.4); Eosinophils % (Auto) 2.4 % (0.0-4.3); Hematocrit 41.1 % (35.5-45.6); Hemoglobin 14.1 gm/dl (11.8-15.2); Lymphocytes # (Auto) 1.9 K/mm3 (1.2-5.4); Lymphocytes % (Auto) 32.4 % (13.4-35.0); Mean Corpuscular HGB Conc 34 % (32-34); Mean Corpuscular Volume 92 fl (84-94); Monocytes # (Auto) 0.5 K/mm3 (0.0-0.8); Monocytes % (Auto) 8.6 % (0.0-7.3); Platelet Count 296 K/mm3 (140-440); Red Blood Count 4.47 M/mm3 (3.65-5.03); Red Cell Distribution Width 14.5 % (13.2-15.2)
[2020-12-23 06:30] LABS: BUN/Creatinine Ratio 11; Blood Urea Nitrogen 10 mg/dL (9-20); Calcium 8.9 mg/dL (8.4-10.2); Hemolysis Index 4
[2020-12-23] MEDS: LOSARTAN 25 MG TAB PO SCH (09:20)
[2020-12-23] MEDS: CLOPIDOGREL 75 MG TAB PO SCH (09:20)
[2020-12-23] MEDS: traMADol 50 MG TAB PO PRN ×2 (09:20→15:29)
[2020-12-23] MEDS: ASPIRIN 81 MG TAB CHEW PO SCH (09:20)
[2020-12-23] MEDS ORDERED: LISINOPRIL 5 MG TAB PO SCH (10:00)
[2020-12-23] MEDS ORDERED: HEPARIN 5,000 UNIT/1 ML VIAL SUB-Q SCH (10:00)
--- NOTE | 2020-12-23 10:17 | Consultation ---
History of Present Illness Consult date: 12/23/20 Requesting physician: BEVERLY LYNNE Consult reason: chest pain History of present illness: 40-year-old male with history of CAD/PCI/RCA/LAD, NSTEMI, hypertension, and hyperlipidema who presents [facility] ED with complaints of chest pain x2 days. Patient states she has been experiencing non-radiating 5/10 left sided chest pain which started approximately 2 days ago while on a job site. 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 He states that his chest pain is similar to the pain he experienced when he had a MT a few years ago. Admits to be compliant with meds. 12 lead EKG no acute changes, troponins negative x 4. Denies fever, headache, shortness of breath, cough, hemoptysis, palpitations, abdominal pain, hematuria, alterations in gait, diplopia, or recent sick contacts Past History Past Medical History: acute MT (NSTEMI), CAD, hypertension, hyperlipidemia, other (asthma, MATIAS) Past Surgical History: Other (stent x2 ( RCA 10/08/18, LAD 10/19/19)) Social history: , lives with family, full code. denies: smoking, alcohol abuse, IV drug use Family history: no significant family history Medications and Allergies Allergies Allergy/AdvReac Type Severity Reaction Status Date / Time No Known Allergies Allergy Verified 09/25/14 23:14 Home Medications Medication Instructions Recorded Confirmed Last Taken Type Aspirin [Aspirin BABY CHEW TAB] 81 mg PO QDAY #30 tab.chew 10/10/19 12/23/20 12/22/20 Rx Clopidogrel [Plavix] 75 mg PO QDAY #30 tablet 10/10/19 12/23/20 12/22/20 Rx Simvastatin 40 mg PO QHS 10/19/19 12/23/20 10/18/19 History ALPRAZolam [Xanax TAB] 0.25 mg PO BID PRN #6 tab 10/22/19 12/23/20 Unknown Rx Losartan [Cozaar] 25 mg PO QDAY 12/23/20 12/23/20 12/22/20 History Active Meds: Active Medications Acetaminophen (Acetaminophen 325 Mg Tab) 650 mg PO Q6H PRN PRN Reason: Pain, Mild (1-3) Alprazolam (Alprazolam 0.25 Mg Tab) 0.25 mg PO BID PRN PRN Reason: Anxiety Aspirin (Aspirin 81 Mg Tab Chew) 81 mg PO QDAY [facility] Last Admin: 12/23/20 09:20 Dose: 81 mg Documented by: Clopidogrel Bisulfate (Clopidogrel 75 Mg Tab) 75 mg PO QDAY [facility] Last Admin: 12/23/20 09:20 Dose: 75 mg Documented by: Losartan Potassium (Losartan 25 Mg Tab) 25 mg PO QDAY [facility] Last Admin: 12/23/20 09:20 Dose: Not Given Documented by: Morphine Sulfate (Morphine 4 Mg/1 Ml Inj) 2 mg IV Q5MIN PRN PRN Reason: Chest Pain Last Admin: 12/22/20 23:26 Dose: 2 mg Documented by: Nitroglycerin (Nitroglycerin 0.4 Mg Tab Subl) 0.4 mg SL Q5M PRN PRN Reason: Chest Pain Pravastatin Sodium (Pravastatin 80 Mg Tab) 80 mg PO QHS [facility] Sodium Chloride (Sodium Chloride 0.9% 10 Ml Flush Syringe) 10 ml IV PRN PRN PRN Reason: LINE FLUSH Tramadol HCl (Tramadol 50 Mg Tab) 50 mg PO Q6H PRN PRN Reason: Pain, Moderate (4-6) Last Admin: 12/23/20 09:20 Dose: 50 mg Documented by: Review of Systems Constitutional: no fever, no chills, no sweats Cardiovascular: chest pain, no orthopnea, no palpitations, no edema, no syncope, no lightheadedness, no shortness of breath Respiratory: no hemoptysis, no shortness of breath, no dyspnea on exertion Gastrointestinal: no nausea, no vomiting, no constipation Genitourinary Male: no dysuria, no hematuria, no flank pain Rectal: no pain, no bleeding Musculoskeletal: no neck pain Integumentary: no rash Neurological: no head injury, no transient paralysis Psychiatric: no memory loss, no sleep disturbances Physical Examination Vital Signs Temp Pulse Resp BP Pulse Ox 99 F 65 20 113/83 98 12/22/20 16:26 12/22/20 16:26 12/22/20 16:26 12/22/20 16:26 12/22/20 16:26 General appearance: no acute distress HEENT: Positive: PERRL Neck: Positive: neck supple, trachea midline Cardiac: Positive: Reg Rate and Rhythm Lungs: Positive: Normal Exam, clear to auscultation Neuro: Positive: Grossly Intact Abdomen: Positive: Unremarkable, Soft, Active Bowel Sounds Male genitourinary: Positive: deferred Skin: Positive: Clear. Negative: Rash Extremities: Present: warm Results 12/23/20 05:39 12/23/20 05:39 Cardiac Enzymes 12/22/20 Range/Units 16:29 AST 22 (5-40) units/L Coagulation 12/22/20 Range/Units 16:29 PT 13.7 (12.2-14.9) Sec. INR 1.06 (0.87-1.13) APTT 31.0 (24.2-36.6) Sec. CBC 12/22/20 12/23/20 Range/Units 16:29 05:39 WBC 7.1 6.0 (4.5-11.0) K/mm3 RBC 4.64 4.47 (3.65-5.03) M/mm3 Hgb 14.4 14.1 (11.8-15.2) gm/dl Hct 42.6 41.1 (35.5-45.6) % Plt Count 334 296 (140-440) K/mm3 Lymph # (Auto) 1.0 L 1.9 (1.2-5.4) K/mm3 [place] # (Auto) 0.4 0.5 (0.0-0.8) K/mm3 Eos # (Auto) 0.0 0.1 (0.0-0.4) K/mm3 Baso # (Auto) 0.0 0.0 (0.0-0.1) K/mm3 Comprehensive Metabolic Panel 12/22/20 12/23/20 Range/Units 16:29 05:39 Sodium 139 138 (137-145) mmol/L Potassium 3.9 3.9 (3.6-5.0) mmol/L Chloride 102.0 102.9 (98-107) mmol/L Carbon Dioxide 25 24 (22-30) mmol/L BUN 10 10 (9-20) mg/dL Creatinine 0.9 0.9 (0.8-1.3) mg/dL Glucose 95 91 (75-100) mg/dL Calcium 9.3 8.9 (8.4-10.2) mg/dL AST 22 (5-40) units/L ALT 14 (7-56) units/L Alkaline Phosphatase 78 (35-129) units/L Total Protein 7.2 (6.3-8.2) g/dL Albumin 4.3 (3.9-5) g/dL EKG interpretations - Telemetry EKG Rhythm: Sinus Rhythm Assessment and Plan Typical chest pain Multivessel CAD s/p NSTEMI (DESTINY/RCA 10/03 & DESTINY prox LAD 11/03) Hyperlipidemia Strong family history of premature heart disease LHC 10/08/19: Right dominant, RCA: Atherothrombotic occlusion of the distal se gment with [id number] collaterals, left main: Patent, LCx: Mid 50 to 60% stenosis smooth FADI-3 flow, LAD: High mid LAD 70% stenosis, successful DESTINY distal RCA [facility] 10/19/19: Stent to the distal RCA is widely patent, 90% eccentric hazy high mid LAD stenosis, 40 to 50% mid LCx stenosis, successful DESTINY to mid LAD ECHO 10/08/19: EF 55-60%, normal LV filling pressure No EKG changes Cardiac enzymes negative x4 The patient continues to complain of recurrent chest pain while in the hospital. Recommend myocardial perfusion scan in the a.m.
--- NOTE | 2020-12-23 10:56 | Progress Note ---
Assessment and Plan Assessment and plan: --Atypical Chest Pain; Serial cardiac enzymes and EKG Continues to have intermittent chest pain Patient has significant history of coronary artery disease status post stent placement Cardiology evaluated the patient Possible stress test tomorrow Continue aspirin Plavix and statin --Sinus bradycardia; present on admission Improved heart rate is in 60s today --HTN; moderate control Continue current antihypertensives and as needed medications --History of CAD status post PCI Continue ASA, Plavix, and statin S/P stent x2 (RCA 10/08/18 & LAD 10/19/19) Patient claims compliance with medications and diet --Dyslipidemia; resume home statin low-cholesterol diet --DVT prophylaxis; Lovenox Closely monitor the patient and adjust management as needed Plan of care reviewed with the patient and her nurse Cardiology consult and recommendations noted and appreciated N.p.o. from midnight, follow stress test tomorrow if negative and stable patient can be discharged History Interval history: I have seen and examined the patient at the bedside Patient's chart and medications reviewed Patient with history of coronary artery disease s/p PCI was was admitted with chest pain. First 2 sets of cardiac enzymes negative Cardiology evaluated the patient and recommend stress test tomorrow Patient's chest pain significantly improved very minimal intermittent chest pain Vital signs noted Hospitalist Physical - Constitutional Vitals: Temp Pulse Resp BP Pulse Ox 97.5 F L 68 18 105/59 97 12/23/20 08:18 12/23/20 09:20 12/23/20 08:18 12/23/20 09:20 12/23/20 08:18 General appearance: Present: no acute distress, well-nourished - EENT Eyes: Present: PERRL, EOM intact - Neck Neck: Present: supple, normal ROM - Respiratory Respiratory effort: normal Respiratory: bilateral: diminished, negative: rales, rhonchi, wheezing - Cardiovascular Rhythm: regular Heart Sounds: Present: S1 & S2 - Extremities Extremities: no ischemia, No edema - Abdominal General gastrointestinal: soft, non-tender, non-distended, normal bowel sounds - Integumentary Integumentary: Present: clear, warm - Psychiatric Psychiatric: appropriate mood/affect, cooperative - Neurologic Neurologic: CNII-XII intact, moves all extremities HEART Score - HEART Score EKG: Non-specific Age: < 45 Risk factors: > 3 risk factors or hx of atherosclerotic disease Troponin: Troponin T < 0.010 ng/mL (0.00-0.029) 12/23/20 05:39 Troponin: < normal limit Results - Labs CBC & Chem 7: 12/23/20 05:39 12/23/20 05:39 Labs: Laboratory Last Values WBC 6.0 K/mm3 (4.5-11.0) 12/23/20 05:39 RBC 4.47 M/mm3 (3.65-5.03) 12/23/20 05:39 Hgb 14.1 gm/dl (11.8-15.2) 12/23/20 05:39 Hct 41.1 % (35.5-45.6) 12/23/20 05:39 MCV 92 fl (84-94) 12/23/20 05:39 MCH 32 pg (28-32) 12/23/20 05:39 MCHC 34 % (32-34) 12/23/20 05:39 RDW 14.5 % (13.2-15.2) 12/23/20 05:39 Plt Count 296 K/mm3 (140-440) 12/23/20 05:39 Lymph % (Auto) 32.4 % (13.4-35.0) 12/23/20 05:39 Graham % (Auto) 8.6 % (0.0-7.3) H 12/23/20 05:39 Eos % (Auto) 2.4 % (0.0-4.3) 12/23/20 05:39 Baso % (Auto) 0.7 % (0.0-1.8) 12/23/20 05:39 Lymph # (Auto) 1.9 K/mm3 (1.2-5.4) 12/23/20 05:39 Graham # (Auto) 0.5 K/mm3 (0.0-0.8) 12/23/20 05:39 Eos # (Auto) 0.1 K/mm3 (0.0-0.4) 12/23/20 05:39 Baso # (Auto) 0.0 K/mm3 (0.0-0.1) 12/23/20 05:39 Seg Neutrophils % 55.9 % (40.0-70.0) 12/23/20 05:39 Seg Neutrophils # 3.4 K/mm3 (1.8-7.7) 12/23/20 05:39 PT 13.7 Sec. (12.2-14.9) 12/22/20 16:29 INR 1.06 (0.87-1.13) 12/22/20 16:29 APTT 31.0 Sec. (24.2-36.6) 12/22/20 16:29 Sodium 138 mmol/L (137-145) 12/23/20 05:39 Potassium 3.9 mmol/L (3.6-5.0) 12/23/20 05:39 Chloride 102.9 mmol/L (98-107) 12/23/20 05:39 Carbon Dioxide 24 mmol/L (22-30) 12/23/20 05:39 Anion Gap 15 mmol/L 12/23/20 05:39 BUN 10 mg/dL (9-20) 12/23/20 05:39 Creatinine 0.9 mg/dL (0.8-1.3) 12/23/20 05:39 Estimated GFR > 60 ml/min 12/23/20 05:39 BUN/Creatinine Ratio 11 % 12/23/20 05:39 Glucose 91 mg/dL (75-100) 12/23/20 05:39 Calcium 8.9 mg/dL (8.4-10.2) 12/23/20 05:39 Total Bilirubin 0.40 mg/dL (0.1-1.2) 12/22/20 16:29 AST 22 units/L (5-40) 12/22/20 16:29 ALT 14 units/L (7-56) 12/22/20 16:29 Alkaline Phosphatase 78 units/L (35-129) 12/22/20 16:29 Troponin T < 0.010 ng/mL (0.00-0.029) 12/23/20 05:39 NT-Pro-B Natriuret Pep 12.20 pg/mL (0-450) 12/23/20 05:39 Total Protein 7.2 g/dL (6.3-8.2) 12/22/20 16:29 Albumin 4.3 g/dL (3.9-5) 12/22/20 16:29 Albumin/Globulin Ratio 1.5 % 12/22/20 16:29 Shell/IV: Voiding Method Urinal Active Medications - Current Medications Current Medications: Generic Name Dose Route Start Last Admin Trade Name Freq PRN Reason Stop Dose Admin Acetaminophen 650 mg 12/22/20 22:09 Acetaminophen 325 Mg Tab PO Q6H PRN Pain, Mild (1-3) Alprazolam 0.25 mg 12/22/20 22:14 Alprazolam 0.25 Mg Tab PO BID PRN Anxiety Aspirin 81 mg 12/23/20 10:00 12/23/20 09:20 Aspirin 81 Mg Tab Chew PO 81 mg QDAY HELEN Administration Clopidogrel Bisulfate 75 mg 12/23/20 10:00 12/23/20 09:20 Clopidogrel 75 Mg Tab PO 75 mg QDAY HELEN Administration Losartan Potassium 25 mg 12/23/20 10:00 12/23/20 09:20 Losartan 25 Mg Tab PO Not Given QDAY HELEN Morphine Sulfate 2 mg 12/22/20 22:09 12/22/20 23:26 Morphine 4 Mg/1 Ml Inj IV 2 mg Q5MIN PRN Administration Chest Pain Nitroglycerin 0.4 mg 12/22/20 22:09 Nitroglycerin 0.4 Mg Tab Subl SL Q5M PRN Chest Pain Pravastatin Sodium 80 mg 12/23/20 22:00 Pravastatin 80 Mg Tab PO QHS HELEN Sodium Chloride 10 ml 12/22/20 22:09 Sodium Chloride 0.9% 10 Ml Flush Syringe IV PRN PRN LINE FLUSH Tramadol HCl 50 mg 12/22/20 22:09 12/23/20 09:20 Tramadol 50 Mg Tab PO 50 mg Q6H PRN Administration Pain, Moderate (4-6)
[2020-12-23] MEDS ORDERED: PRAVASTATIN 80 MG TAB PO SCH (22:00)
[2020-12-23] MEDS ORDERED: NON-FORMULARY EACH (Simvastatin [Simvastatin] 40 MG Tablet) PO SCH (22:00)
[2020-12-24] MEDS ORDERED: REGADENOSON 0.4 MG/5 ML INJ IV ONE (06:47)
--- NOTE | 2020-12-24 11:29 | Discharge Summary ---
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 Hospitalization Condition: Stable Disposition: DC-01 TO HOME OR SELFCARE Time spent for discharge: 35 minutes Core Measure Documentation - Palliative Care Palliative Care/ Comfort Measures: Not Applicable - Core Measures Any of the following diagnoses?: none Exam - Constitutional Vitals: Temp Pulse Resp BP Pulse Ox 98.1 F 50 L 16 119/76 98 12/24/20 06:59 12/24/20 06:59 12/24/20 06:59 12/24/20 10:13 12/24/20 06:59 General appearance: Present: no acute distress, well-nourished - EENT Eyes: Present: PERRL, EOM intact - Neck Neck: Present: supple, normal ROM - Respiratory Respiratory effort: normal Respiratory: bilateral: diminished, negative: rales, rhonchi, wheezing - Cardiovascular Rhythm: regular Heart Sounds: Present: S1 & S2 - Extremities Extremities: no ischemia, No edema - Abdominal General gastrointestinal: Present: soft, non-tender, non-distended, normal bowel sounds - Integumentary Integumentary: Present: clear, warm - Musculoskeletal Musculoskeletal: strength equal bilaterally, generalized weakness - Psychiatric Psychiatric: appropriate mood/affect, cooperative - Neurologic Neurologic: CNII-XII intact, moves all extremities Plan Activity: advance as tolerated Diet: other (Cardiac diet) Additional Instructions: Follow with market research associate Dr Clifton Virk in [facility] office on 01/04/21 at 1:45PM. . You have worsening symptoms contact MD or go to the nearest emergency room as needed Follow up with: BEAU SHAIKH MD [Primary Care Provider] - 3-5 Days MARILEE VIRK MD [Staff Physician] - 01/04/21 1:45 pm Prescriptions: ISOSORBIDE MONOnitrate [Imdur ER] 30 mg PO DAILY #30 tab.er.24h
--- NOTE | 2020-12-24 12:03 | Nuclear Medicine Report ---
APPROVED REPORT Exam: Nuclear Stress Test Indication: Chest pain BMI: 0 Stress Test Details HR Max Heart Rate (APMHR): 178 bpm Target HR (85% APMHR): 151 bpm BP ECG Clinical Reason for Termination: Completed protocol NM EXAM: Myocardial Perfusion REST/STRESS Imaging Protocol: Rest Tc-99m/Stress Tc-99m 1 day Resting Data Rest SPECT myocardial perfusion imaging was performed in supine position 30 minutes following the intravenous injection of 10 mCi of Tc-99m Myoview. Time of rest injection: 0945 Pharmacologic Stress Pharmacologic stress test was performed by injecting Regadenoson 0.4 mg IV push followed by the intravenous injection of 28 mCi of Tc-99m Myoview. Time of stress injection: 1015 Gated Stress SPECT was performed 45 minutes after stress injection. Study Quality Study: excellent Lung Uptake: Normal Study Data TID = 1.13. Perfusion The rest and stress images show normal perfusion. Normal perfusion on both the stress and rest images. Wall Motion The rest and stress images show normal left ventricular wall motion. Nuclear Conclusion ECG Findings: negative for ischemia Clinical Findings: negative for ischemia Nuclear Findings: negative for ischemia Exercise Capacity: not assessed Left Ventricular Function: normal Normal left ventricular size and function with no regional wall motion abnormalities. Normal study. No scintigraphic evidence for myocardial ischemia or scar.
[2020-12-24 12:19] VITALS: BP 116/69
--- NOTE | 2020-12-24 12:34 | Progress Note ---
Assessment and Plan Cardiology is consulted for chest pain. Tele reviewed: SB 57, low overnight of SB 44. AMI ruled out. Lexiscan (12/24/20) today was negative for ischemia. Initiate Imdur 30mg PO daily for angina. Currently stable cardiac status. Pt may discharge on curent cardiac regimen. Nothing further to add from cardiac standpoint. Pt should f/u with Dr Clifton Husain in our [facility] office on 01/04/21 at 1:45PM. This pt was seen in conjunction with Dr Diaz who agrees with this assessment and plan of care. - Patient Problems (1) Typical angina Current Visit: Yes Status: Acute (2) History of non-ST elevation myocardial infarction (NSTEMI) Current Visit: Yes Status: Chronic (3) History of PTCA Current Visit: Yes Status: Chronic (4) HLD (hyperlipidemia) Current Visit: Yes Status: Chronic Subjective Date of service: 12/24/20 Principal diagnosis: Chest Pain Interval history: Pt resting comfortably in bed. Tele reviewed: SB 57, low overnight of SB 44. Objective Last Vital Signs Temp 98.2 F 12/24/20 11:41 Pulse 55 L 12/24/20 11:41 Resp 18 12/24/20 11:41 BP 116/69 12/24/20 11:41 Pulse Ox 99 12/24/20 11:41 - Physical Examination General: No Apparent Distress HEENT: Positive: PERRL, Normocephaly, Mucus Membranes Moist Neck: Positive: neck supple, trachea midline Cardiac: Positive: Regular Rhythm, S1/S2, Bradycardia Lungs: Positive: clear to auscultation, Normal Breath Sounds Neuro: Positive: Grossly Intact Abdomen: Positive: Unremarkable, Soft, Active Bowel Sounds Skin: Positive: Clear. Negative: Rash Extremities: Present: warm - Telemetry EKG Rhythm: Sinus Bradycardia
[2020-12-24] MEDS: ASPIRIN 81 MG TAB CHEW PO SCH (13:18)
[2020-12-24] MEDS: LOSARTAN 25 MG TAB PO SCH (13:19)
[2020-12-24] MEDS: CLOPIDOGREL 75 MG TAB PO SCH (13:20)
--- NOTE | 2020-12-24 17:39 | Electrocardiograph Report ---
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
--- NOTE | 2020-12-27 11:28 | Electrocardiograph Report ---
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
== END 2020-12-24 15:50 | disposition home or self-care (01) ==
LOC: ED 16:07 → INTOOBSV 22:30 → 4A 22:30
PROVIDERS: ADMIT Emergency Medicine; ATTEND Internal Medicine
DX: I21.4 Non-ST elevation (NSTEMI) myocardial infarction (principal); I25.10 Atherosclerotic heart disease of native coronary artery without angina pectoris; R00.1 Bradycardia, unspecified; I10 Essential (primary) hypertension; I25.2 Old myocardial infarction; J45.909 Unspecified asthma, uncomplicated; E78.5 Hyperlipidemia, unspecified; G43.909 Migraine, unspecified, not intractable, without status migrainosus; Z79.82 Long term (current) use of aspirin; Z79.02 Long term (current) use of antithrombotics/antiplatelets; Z95.1 Presence of aortocoronary bypass graft; Z98.890 Other specified postprocedural states
CPT/HCPCS: 36415; 71046; 78452; 80048; 80053; 83880; 84484; 85025; 85610; 85730; 93005; 93017; 96374; 97161; 99285; A9270; A9502; G0378; J2270; J2785